=== PATIENT | female | born 1985 | race Two or more races ===

== ENCOUNTER 2018-11-28 11:53 | Emergency (ER) | payer OTHER ==
[2018-11-28 12:06] VITALS: BP 121/78; PULSE 80; TEMP 98.5; BMI 23.8
[2018-11-28] MEDS ORDERED: ACETAMINOPHEN 1000 MG/100 ML VIAL (NON FORMULARY) IVPB ONE (12:40)
[2018-11-28] MEDS ORDERED: METOCLOPRAMIDE HCL INJECTION 10 MG/2 ML VIAL IVPUSH ONE (12:40)
[2018-11-28] MEDS ORDERED: SODIUM CHLORIDE 1,000 ML IV STA (12:40)
[2018-11-28] MEDS ORDERED: ACETAMINOPHEN INJECTION 100 ML IVPB ONE (13:42)
[2018-11-28] MEDS ORDERED: METOCLOPRAMIDE HCL INJECTION 10 MG/2 ML VIAL ONE (13:42)
--- NOTE | 2018-11-28 13:53 | PDOC ---
Documentation entered by Zhao Epstein SCRIBE, acting as scribe for Malorie Fung MD. Malorie Fung MD: This documentation has been prepared by the Lucian henriquez Elijah, SCRIBE, under my direction and personally reviewed by me in its entirety. I confirm that the documentation accurately reflects all work, treatment, procedures, and medical decision making performed by me. History of Present Illness - General Chief Complaint: Migraine Headache Stated Complaint: HEADACHE Time Seen by Provider: 11/28/18 12:24 History Source: Patient Exam Limitations: No Limitations - History of Present Illness Initial Comments: 11/28/18 12:45 Patient is a 33 year old female with a significant past medical history of migraines and asthma who presents to the ED with a headache which began the day prior to arrival to the ER. Patient reports the headache is typical of her prior migraine headaches - left-sided, pressure, no radiation to the neck, 10/ 10 intensity and is associated with sensitivity to light and x 1 episode of vomiting. Patient notes when she stood up she saw black and has had difficulty moving. Patient also reports chest pain starting today which is unusual of her normal migraines which prompted her visit to the ED. She took sumatryptan yesterday but this did not help She denies head trauma Allergies:Acetaminophen, Aspirin, Ibuprofen, Naproxen, Oxycodone. Past History - Past Medical History Allergies/Adverse Reactions: Allergies Allergy/AdvReac Type Severity Reaction Status Date / Time acetaminophen [From Percocet] Allergy Mild Hives Verified 11/28/18 12:08 aspirin Allergy Mild Hives Verified 11/28/18 12:08 ibuprofen [From Motrin] Allergy Mild Hives Verified 11/28/18 12:08 naproxen [From Naprosyn] Allergy Mild Hives Verified 11/28/18 12:08 oxycodone [From Percocet] Allergy Mild Hives Verified 11/28/18 12:08 Home Medications: Ambulatory Orders Acetaminophen/Caffeine/Butalb [Fioricet -] 1 tablet PO BID PRN #10 tablet MDD 2 11/28/18 Metoclopramide HCl [Reglan] 10 mg PO BID PRN #10 tablet 11/28/18 COPD: No Other medical history: migrain - Suicide/Smoking/Psychosocial Hx Smoking History: Never smoked Have you smoked in the past 12 months: No Information on smoking cessation initiated: No Hx Alcohol Use: No Drug/Substance Use Hx: No Review of Systems - Review of Systems Comments:: 11/28/18 12:46 GENERAL/CONSTITUTIONAL: No fever or chills. No weakness. HEAD, EYES, EARS, NOSE AND THROAT: No change in vision. No ear pain or discharge. No sore throat. CARDIOVASCULAR: +chest pain No shortness of breath. RESPIRATORY: No cough, wheezing, or hemoptysis. GASTROINTESTINAL: +Vomiting No diarrhea or constipation. GENITOURINARY: No dysuria, frequency, or change in urination. MUSCULOSKELETAL: No joint or muscle swelling or pain. No neck or back pain. SKIN: No rash NEUROLOGIC: + headache No vertigo, loss of consciousness, or change in strength/ sensation. ENDOCRINE: No increased thirst. No abnormal weight change. HEMATOLOGIC/LYMPHATIC: No anemia, easy bleeding, or history of blood clots. ALLERGIC/IMMUNOLOGIC: No hives or skin allergy. *Physical Exam - Vital Signs Last Vital Signs Temp Pulse Resp BP Pulse Ox 98.5 F 80 16 121/78 100 11/28/18 12:03 11/28/18 12:03 11/28/18 12:03 11/28/18 12:03 11/28/18 12:03 - Physical Exam Comments: 11/28/18 12:46 GENERAL: +Photophobia. The patient appears to be in pain HEAD: Normal with no signs of trauma. EYES: wearing sunglasses, PERRLA, EOMI, sclera anicteric, conjunctiva clear. ENT: Moist mucous membranes. NECK: Normal range of motion, supple LUNGS: Breath sounds equal, clear to auscultation bilaterally. No wheezes, and no crackles. HEART:Regular rate and rhythm, normal S1 and S2 without murmur, rub or gallop. ABDOMEN: Soft, nontender, normoactive bowel sounds. EXTREMITIES: Normal range of motion, no edema. NEUROLOGICAL: Cranial nerves II through XII grossly intact. Normal speech. No focal neurological deficits. MUSCULOSKELETAL: No cervical spine tenderness SKIN: Warm, Dry, normal turgor, no rashes or lesions noted. ED Treatment Course - LABORATORY CBC & Chemistry Diagram: 11/28/18 13:57 11/28/18 13:57 Medical Decision Making - Medical Decision Making 11/28/18 12:58 Ms Barnes is a 33 yo F who presents to the ER with a complaint of migraine headache Pt reports that she has had a long standing history of migraine headaches since age 11 Pt has previously been imaged (? she thinks CT scan) Pt takes OTC medications for headaches Last headache like this was 3 weeks ago Pt reports that she awoke yesterday with headache, left head, throbbing/ squeezing, 10/10, no radiation Associated with photophobia, nausea, one episode of vomiting No head trauma No weakness or numbness On examination Pt is wearing sunglasses Otherwise neurologically intact EKG: Twelve-lead EKG was performed and reviewed by me. There is normal sinus rhythm with a normal rate of 69 bpm. The axis is normal. The intervals are normal. There are no ST or T wave abnormalities. Impression: Normal twelve-lead EKG Will do: Labs EKG Tylenol IV, Reglan IV Will re Assess 11/28/18 15:13 Laboratory Tests 11/28/18 11/28/18 11/28/18 13:51 13:57 13:57 WBC 4.5 Hgb 13.5 Hct 39.8 Plt Count 194 BUN 6.3 L Creatinine 0.6 Serum , Qual Negative 11/28/18 15:20 Pt states she still has a headache Will order sumatriptan 6mg SQ 11/28/18 17:48 Laboratory Tests 11/28/18 13:57 Creatine Kinase 116 Troponin I < 0.02 Pt states she feels better Will discharge to home Follow up with Neuro Return to the ER for persistent or worsening symptoms Clinical impression: migraine H/A, initial presentation *DC/Admit/Observation/Transfer Diagnosis at time of Disposition: Migraine Qualifiers: Migraine type: other Status migrainosus presence: without status migrainosus Intractability: not intractable Qualified Code(s): G43.809 - Other migraine, not intractable, without status migrainosus - Discharge Dispostion Disposition: HOME Decision to Admit order: No - Prescriptions Prescriptions: Acetaminophen/Caffeine/Butalb [Fioricet -] 1 tablet PO BID PRN #10 tablet MDD 2 PRN Reason: severe headache Metoclopramide HCl [Reglan] 10 mg PO BID PRN #10 tablet PRN Reason: nausea, headache - Referrals Referrals: Olive Colmenares MD [Primary Care Provider] - Slade Altamirano DO [Staff Physician] - Didi Garcia MD [Staff Physician] - - Patient Instructions Printed Discharge Instructions: Migraine Headaches (Alternative Therapy), Migraine -- Adult Additional Instructions: Ms Barnes Thank you for coming in to the ER today! I am sorry you have had a headache Your labs are normal including the blood test we sent to evaluate your heart Please be sure to follow up with your primary care physician AND THE NEUROLOGIST I have put the names of 2 neurologist in your chart Please take migraine medications as soon as your begin to have a headache ( Tylenol or Motrin) If your headache is more severe, you can also take Reglan (please take this as prescribed) If your headache is severe, you can take fiorecet Return to the ER for a recurrence of your headache or any other concerns or complaints - Post Discharge Activity Forms/Work/School Notes: Back to Work
[2018-11-28 14:15] LABS: BASO % 0.6 % (0-2.0); EOS % 1.7 % (0-4.5); HEMATOCRIT 39.8 % (32.4-45.2); HEMOGLOBIN 13.5 GM/dL (10.7-15.3); MCH 29.6 pg (25.7-33.7); MEAN CELL VOLUME 87.1 fl (80-96); MEAN PLT VOLUME 9.3 fl (7.5-11.1); MONO % 6.4 % (3.8-10.2); NEUT % 54.3 % (42.8-82.8); RBC 4.57 M/mm3 (3.60-5.2); RDW 13.4 % (11.6-15.6); WHITE BLOOD COUNT 4.5 K/mm3 (4.0-10.0)
[2018-11-28 14:31] LABS: PLATELET COUNT 194 K/MM3 (134-434)
[2018-11-28 14:44] LABS: ALBUMIN 3.9 g/dl (3.4-5.0); ALK PHOS 95 U/L (45-117); ANION GAP 6 MMOL/L (8-16); BILIRUBIN,TOTAL 0.3 mg/dL (0.2-1); BLOOD UREA NITROGEN 6.3 mg/dL (7-18); CALCIUM 8.7 mg/dL (8.5-10.1); CHLORIDE 108 mmol/L (98-107); CO2 27 mmol/L (21-32); CREATININE 0.6 mg/dL (0.55-1.3); GLUCOSE,RANDOM 92 mg/dL (74-106); POTASSIUM 4.4 mmol/L (3.5-5.1); SGOT/AST 11 U/L (15-37); SGPT/ALT 12 U/L (13-61); SODIUM 141 mmol/L (136-145); TOT PROT 7.4 g/dl (6.4-8.2)
[2018-11-28] MEDS ORDERED: SUMATRIPTAN SUCCINATE 6 MG/0.5 ML VIAL SQ ONE (15:15)
[2018-11-28] MEDS ORDERED: SUMATRIPTAN SUCCINATE 6 MG/0.5 ML VIAL ONE (16:11)
--- NOTE | 2018-11-28 23:30 | EKG ---
Test Reason : Blood Pressure : / mmHG Vent. Rate : 069 BPM Atrial Rate : 069 BPM P-R Int : 174 ms QRS Dur : 080 ms QT Int : 382 ms P-R-T Axes : 032 068 066 degrees QTc Int : 409 ms NORMAL SINUS RHYTHM CANNOT RULE OUT ANTERIOR INFARCT , AGE UNDETERMINED ABNORMAL ECG NO PREVIOUS ECGS AVAILABLE Confirmed by NIMISHA BONNER MD ([id number]) on 11/28/2018 11:30:36 PM Referred By: Confirmed By:NIMISHA BONNER MD
== END 2018-11-28 18:25 | disposition home or self-care (01) ==
LOC: JER 11:53
PROC: 3E023GC Introduction of Other Therapeutic Substance into Muscle, Percutaneous Approach (ICD-10-PCS; principal; 2018-11-28)
PROC: 3E0337Z Introduction of Electrolytic and Water Balance Substance into Peripheral Vein, Percutaneous Approach (ICD-10-PCS; 2018-11-28)
PROC: 3E033NZ Introduction of Analgesics, Hypnotics, Sedatives into Peripheral Vein, Percutaneous Approach (ICD-10-PCS; 2018-11-28)
PROC: 3E033GC Introduction of Other Therapeutic Substance into Peripheral Vein, Percutaneous Approach (ICD-10-PCS; 2018-11-28)
DX: G43.809 Other migraine, not intractable, without status migrainosus (principal)
CPT/HCPCS: 36415; 80053; 82550; 84484; 84703; 85025; 93005; 93010; 99284-25; J0131; J7030